=== PATIENT | female | born 1930 | race Caucasian/White ===

== ENCOUNTER 2017-01-23 11:31 | Emergency (ER) | payer MEDICARE, BC ==
[2017-01-23] MEDS ORDERED: SODIUM CHLORIDE 0.9% 500 ML IV STA (11:51)
[2017-01-23] MEDS ORDERED: SODIUM CHLORIDE 0.9% 1,000 ML IV STA (11:51)
[2017-01-23] MEDS ORDERED: HYDROmorphone 1 MG/ML 1 ML SYRINGE IVP STA (11:51)
--- NOTE | 2017-01-23 12:40 | ED ---
General Adult HPI - General Chief complaint: Back Pain/Injury Stated complaint: back pain, kidney infection Time Seen by Provider: 01/23/17 11:44 Source: family, RN notes reviewed, old records reviewed Mode of arrival: ambulatory Limitations: altered mental status - History of Present Illness Initial comments: This is an 86-year-old female the ER for evaluation. Possible urinary tract infection. Patient has dementia so unable to give history patient with family at bedside, sent from urgent care clinic care facility for evaluation regarding bloody urine possible urinary tract infection, possible kidney infection, possible kidney stone. No fevers, patient herself has no complaints - Related Data Home Medications Medication Instructions Recorded Confirmed Acetaminophen Tab [Tylenol Tab] 500 mg PO Q6H PRN 02/07/16 01/23/17 Cholecalciferol [Vitamin D3] 1,000 unit PO DAILY 02/07/16 01/23/17 Multivitamins, Thera [Multivitamin] 1 tab PO DAILY 02/07/16 01/23/17 Escitalopram [Lexapro] 10 mg PO DAILY 02/25/16 01/23/17 Lactulose 20 gm PO DAILY 01/23/17 01/23/17 QUEtiapine [SEROquel] 25 mg PO QAM 01/23/17 01/23/17 QUEtiapine [SEROquel] 50 mg PO HS 01/23/17 01/23/17 Allergies Allergy/AdvReac Type Severity Reaction Status Date / Time codeine Allergy Unknown Verified 01/23/17 11:56 diphenhydramine HCl Allergy Unknown Verified 01/23/17 11:56 [From Benadryl] hydroxyzine [From Vistaril] Allergy Unknown Verified 01/23/17 11:56 levofloxacin [From Levaquin] Allergy Unknown Verified 01/23/17 11:56 meperidine HCl [From Demerol] Allergy Unknown Verified 01/23/17 11:56 morphine Allergy Unknown Verified 01/23/17 11:56 STEROIDS Allergy Unknown Uncoded 01/23/17 11:56 Review of Systems ROS Statement: Those systems with pertinent positive or pertinent negative responses have been documented in the HPI. ROS Other: All systems not noted in ROS Statement are negative. 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 Absent: scleral icterus, conjunctival injection, periorbital swelling ENT exam: Present: normal exam, mucous membranes moist Neck exam: Present: normal inspection. Absent: tenderness, meningismus, lymphadenopathy Respiratory exam: Present: normal lung sounds bilaterally. Absent: respiratory distress, wheezes, rales, rhonchi, stridor Cardiovascular Exam: Present: regular rate, normal rhythm, normal heart sounds. Absent: systolic murmur, diastolic murmur, rubs, gallop, clicks GI/Abdominal exam: Present: soft, normal bowel sounds. Absent: distended, tenderness, guarding, rebound, rigid Extremities exam: Present: normal inspection, full ROM, normal capillary refill. Absent: tenderness, pedal edema, joint swelling, calf tenderness Back exam: Present: normal inspection Neurological exam: Present: alert, oriented X3, CN II-XII intact Psychiatric exam: Present: normal affect, normal mood Skin exam: Present: warm, dry, intact, normal color. Absent: rash Course Vital Signs 01/23/17 11:35 Temperature 97.8 F Pulse Rate 74 Respiratory 20 Rate Blood Pressure 151/71 O2 Sat by Pulse 98 Oximetry - Reevaluation(s) Reevaluation #1: 01/23/17 13:30 But with family regarding patient's condition, they are aware, updated Medical Decision Making - Medical Decision Making 86 female ER for evaluation regarding possible urinary tract infection, positive urinary tract infection CT level is normal, patient to be discharged home - Lab Data Result diagrams: 01/23/17 12:25 01/23/17 12:25 Lab Results 01/23/17 01/23/17 01/23/17 Range/Units 12:25 12:25 12:25 WBC 9.4 (3.8-10.6) k/uL RBC 3.91 (3.80-5.40) m/uL Hgb 11.9 (11.4-16.0) gm/dL Hct 35.7 (34.0-46.0) % MCV 91.3 (80.0-100.0) fL MCH 30.5 (25.0-35.0) pg MCHC 33.4 (31.0-37.0) g/dL RDW 12.7 (11.5-15.5) % Plt Count 278 (150-450) k/uL Neutrophils % 79 % Lymphocytes % 11 % Monocytes % 6 % Eosinophils % 1 % Basophils % 0 % Neutrophils # 7.4 (1.3-7.7) k/uL Lymphocytes # 1.0 (1.0-4.8) k/uL Monocytes # 0.6 (0-1.0) k/uL Eosinophils # 0.1 (0-0.7) k/uL Basophils # 0.0 (0-0.2) k/uL PT (9.0-12.0) sec INR (<1.1) APTT (22.0-30.0) sec Sodium 142 (137-145) mmol/L Potassium 4.1 (3.5-5.1) mmol/L Chloride 107 (98-107) mmol/L Carbon Dioxide 26 (22-30) mmol/L Anion Gap 9 mmol/L BUN 20 H (7-17) mg/dL Creatinine 0.71 (0.52-1.04) mg/dL Est GFR (MDRD) Af Amer >60 (>60 ml/min/1.73 sqM) Est GFR (MDRD) Non-Af >60 (>60 ml/min/1.73 sqM) Glucose 85 (74-99) mg/dL Calcium 9.2 (8.4-10.2) mg/dL Phosphorus 4.0 (2.5-4.5) mg/dL Magnesium 2.2 (1.6-2.3) mg/dL Total Bilirubin 0.6 (0.2-1.3) mg/dL AST 17 (14-36) U/L ALT 20 (9-52) U/L Alkaline Phosphatase 84 (38-126) U/L Total Creatine Kinase 69 (30-135) U/L CK-MB (CK-2) 0.8 (0.0-2.4) ng/mL CK-MB (CK-2) Rel Index 1.2 Troponin I <0.012 (0.000-0.034) ng/mL Total Protein 6.4 (6.3-8.2) g/dL Albumin 3.6 (3.5-5.0) g/dL Urine Color Urine Appearance (Clear) Urine pH (5.0-8.0) Ur Specific [place] (1.001-1.035) Urine Protein (Negative) Urine Glucose (UA) (Negative) Urine Ketones (Negative) Urine Blood (Negative) Urine Nitrite (Negative) Urine Bilirubin (Negative) Urine Urobilinogen (<2.0) mg/dL Ur Leukocyte Esterase (Negative) Urine RBC (0-5) /hpf Urine WBC (0-5) /hpf Ur Squamous Epith Cells (0-4) /hpf Amorphous Sediment (None) /hpf Urine Bacteria (None) /hpf Urine Mucus (None) /hpf 01/23/17 01/23/17 Range/Units 12:25 12:25 WBC (3.8-10.6) k/uL RBC (3.80-5.40) m/uL Hgb (11.4-16.0) gm/dL Hct (34.0-46.0) % MCV (80.0-100.0) fL MCH (25.0-35.0) pg MCHC (31.0-37.0) g/dL RDW (11.5-15.5) % Plt Count (150-450) k/uL Neutrophils % % Lymphocytes % % Monocytes % % Eosinophils % % Basophils % % Neutrophils # (1.3-7.7) k/uL Lymphocytes # (1.0-4.8) k/uL Monocytes # (0-1.0) k/uL Eosinophils # (0-0.7) k/uL Basophils # (0-0.2) k/uL PT 10.4 (9.0-12.0) sec INR 1.0 (<1.1) APTT 24.5 (22.0-30.0) sec Sodium (137-145) mmol/L Potassium (3.5-5.1) mmol/L Chloride (98-107) mmol/L Carbon Dioxide (22-30) mmol/L Anion Gap mmol/L BUN (7-17) mg/dL Creatinine (0.52-1.04) mg/dL Est GFR (MDRD) Af Amer (>60 ml/min/1.73 sqM) Est GFR (MDRD) Non-Af (>60 ml/min/1.73 sqM) Glucose (74-99) mg/dL Calcium (8.4-10.2) mg/dL Phosphorus (2.5-4.5) mg/dL Magnesium (1.6-2.3) mg/dL Total Bilirubin (0.2-1.3) mg/dL AST (14-36) U/L ALT (9-52) U/L Alkaline Phosphatase (38-126) U/L Total Creatine Kinase (30-135) U/L CK-MB (CK-2) (0.0-2.4) ng/mL CK-MB (CK-2) Rel Index Troponin I (0.000-0.034) ng/mL Total Protein (6.3-8.2) g/dL Albumin (3.5-5.0) g/dL Urine Color Yellow Urine Appearance Cloudy H (Clear) Urine pH 7.5 (5.0-8.0) Ur Specific [place] 1.018 (1.001-1.035) Urine Protein Trace H (Negative) Urine Glucose (UA) Negative (Negative) Urine Ketones Negative (Negative) Urine Blood Trace H (Negative) Urine Nitrite Negative (Negative) Urine Bilirubin Negative (Negative) Urine Urobilinogen <2.0 (<2.0) mg/dL Ur Leukocyte Esterase Large H (Negative) Urine RBC 36 H (0-5) /hpf Urine WBC 9 H (0-5) /hpf Ur Squamous Epith Cells 1 (0-4) /hpf Amorphous Sediment Few H (None) /hpf Urine Bacteria Rare H (None) /hpf Urine Mucus Rare H (None) /hpf - Radiology Data Radiology results: report reviewed (CT abd and pelvis negative for acute disease ), image reviewed Disposition Clinical Impression: UTI (urinary tract infection) Disposition: HOME SELF-CARE Condition: Good Instructions: Urinary Tract Infection in Women (ED) Referrals: Jose Barrera MD [Primary Care Provider] - 1-2 days
[2017-01-23 12:47] LABS: Amorphous Sediment,Urine Few /hpf; Appearance,Urine Cloudy (Clear); Bacteria,Urine Rare /hpf; Bilirubin,Urine Negative (Negative); Glucose,Urine (UA) Negative (Negative); Ketones,Urine Negative (Negative); Leukocyte Esterase,Urine Large (Negative); Mucus,Urine Rare /hpf; Nitrite,Urine Negative (Negative); PH, Urine 7.5 (5.0-8.0); Particle Count 43280; Protein,Urine Trace (Negative); RBC,Urine 36 /hpf (0-5); Specific Gravity,Urine 1.018 (1.001-1.035); Squamous Epithelial Cell,Urine 1 /hpf (0-4); UA Billing (MACRO vs. MICRO) MICRO; Urobilinogen,Urine <2.0 mg/dL (<2.0); WBC,Urine 9 /hpf (0-5)
[2017-01-23 12:55] LABS: ALT 20 U/L (9-52); AST 17 U/L (14-36); Alkaline Phosphatase 84 U/L (38-126); Anion Gap 9 mmol/L; Blood Urea Nitrogen 20 mg/dL (7-17); Calcium 9.2 mg/dL (8.4-10.2); Carbon Dioxide 26 mmol/L (22-30); Chloride 107 mmol/L (98-107); Glucose 85 mg/dL (74-99); Magnesium 2.2 mg/dL (1.6-2.3); Non-African American GFR(MDRD) >60 (>60 ml/min/1.73 sqM); Potassium 4.1 mmol/L (3.5-5.1); Sodium 142 mmol/L (137-145); Total Bilirubin 0.6 mg/dL (0.2-1.3); Total Protein 6.4 g/dL (6.3-8.2)
[2017-01-23 12:56] LABS: Basophils % (A) 0 %; CH 29.3; CHCM 32.2; Eosinophils # (A) 0.1 k/uL (0-0.7); Eosinophils % (A) 1 %; HCT 35.7 % (34.0-46.0); HDW 2.18; HGB 11.9 gm/dL (11.4-16.0); Luc # (Auto) 0.21; Luc % (Auto) 2; Lymphocytes % (A) 11 %; MCH 30.5 pg (25.0-35.0); MCHC 33.4 g/dL (31.0-37.0); MCV 91.3 fL (80.0-100.0); Mean Platelet Volume 6.4; Monocytes # (A) 0.6 k/uL (0-1.0); Monocytes % (A) 6 %; Neutrophils # (A) 7.4 k/uL (1.3-7.7); Neutrophils % (A) 79 %; RBC 3.91 m/uL (3.80-5.40); RDW 12.7 % (11.5-15.5); WBC 9.4 k/uL (3.8-10.6); WBC (Perox) 9.66
[2017-01-23 13:02] LABS: Creatine Kinase 69 U/L (30-135)
[2017-01-23 13:04] LABS: Partial Thromboplastin Time 24.5 sec (22.0-30.0); Prothrombin Time 10.4 sec (9.0-12.0)
[2017-01-23 13:14] LABS: Creatine Kinase MB 0.8 ng/mL (0.0-2.4); Troponin I <0.012 ng/mL (0.000-0.034)
--- NOTE | 2017-01-23 13:14 | CT ---
EXAMINATION TYPE: CT abdomen pelvis wo con DATE OF EXAM: 01/23/2017 COMPARISON: July 31, 2013 HISTORY: Patient complains of left flank pain. CT DLP: 335.2 mGycm Examination of the solid and hollow viscera is limited given the lack of contrast. FINDINGS: LUNG BASES: No evidence for nodule. No evidence for infiltrate. LIVER/GB: The gallbladder is unremarkable. No space-occupying hepatic lesion. PANCREAS: No pancreatic mass identified. No inflammatory process seen. SPLEEN: No evidence for splenomegaly. No intrasplenic lesions seen. ADRENALS: No adrenal nodules identified. No evidence for thickening. KIDNEYS: Nonspecific complex lesion left kidney measures 4.0 x 3.1 cm and appears stable relative to the prior examination. No nephrolithiasis. No hydronephrosis. BOWEL: Appendix has a normal appearance. No evidence of bowel obstruction. No inflammatory process. M oderate fecal stasis. Lymph nodes: No evidence for adenopathy greater than 1 cm. Abdominal aorta: There is infrarenal abdominal aortic aneurysm measuring 4.6 cm AP dimension which marrero s progressed from approximately 3.2 cm previously. There is mural thrombus as well as what appears to reflect displaced calcification. 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 Other: Degenerative changes lumbar spine. Postoperative changes noted as well. IMPRESSION: 1. 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 MURAL THROMBUS IDENTIFIED. 2. COMPLEX LEFT RENAL LESION IS STABLE. 3. MODERATE FECAL STASIS.
[2017-01-23] MEDS ORDERED: NITROFURANTOIN MONOHYD/M-CRYST 100 MG CAP PO STA (13:31)
[2017-01-23 13:41] VITALS: BP 137/65; PULSE 61; RESP 18; TEMP 98
== END 2017-01-23 13:50 | disposition home or self-care (01) ==
LOC: EC 11:31
DX: N39.0 Urinary tract infection, site not specified (principal); Z85.9 Personal history of malignant neoplasm, unspecified; Z87.891 Personal history of nicotine dependence; Z79.899 Other long term (current) drug therapy; Z96.659 Presence of unspecified artificial knee joint; Z88.1 Allergy status to other antibiotic agents; Z88.5 Allergy status to narcotic agent; Z88.8 Allergy status to other drugs, medicaments and biological substances; Z53.20 Procedure and treatment not carried out because of patient's decision for unspecified reasons
CPT/HCPCS: 36415; 74176; 80053; 81001; 82550; 82553; 83735; 84100; 84484; 85025; 85610; 85730; 87086; 96360; 99284

== ENCOUNTER 2017-06-19 16:08 | Emergency (ER) | payer MEDICARE, BC ==
[2017-06-19 16:19] VITALS: RESP 18; TEMP 99.4
[2017-06-19 17:40] LABS: Basophils # (A) 0.1 k/uL (0-0.2); Basophils % (A) 1 %; CH 28.7; CHCM 31.5; Eosinophils # (A) 0.2 k/uL (0-0.7); Eosinophils % (A) 3 %; HCT 33.7 % (34.0-46.0); HDW 2.04; HGB 10.6 gm/dL (11.4-16.0); Luc # (Auto) 0.12; Luc % (Auto) 2; Lymphocytes # (A) 1.2 k/uL (1.0-4.8); Lymphocytes % (A) 20 %; MCH 28.7 pg (25.0-35.0); MCHC 31.3 g/dL (31.0-37.0); MCV 91.6 fL (80.0-100.0); Mean Platelet Volume 7.1; Monocytes # (A) 0.5 k/uL (0-1.0); Monocytes % (A) 9 %; Neutrophils % (A) 66 %; RBC 3.68 m/uL (3.80-5.40); RDW 14.4 % (11.5-15.5); WBC 6.1 k/uL (3.8-10.6); WBC (Perox) 6.44
--- NOTE | 2017-06-19 17:46 | XR ---
EXAMINATION TYPE: XR abdomen 2V DATE OF EXAM: 06/19/2017 COMPARISON: NONE HISTORY: Constipation TECHNIQUE: 2 views FINDINGS: There is retained fecal material throughout the colon. There is no sign of free air. Lung b ases are clear. I see no pathologic calcifications over the kidneys. There are spondylotic changes in the lumbar spine. IMPRESSION: Constipation. Nonacute abdomen.
[2017-06-19 17:50] LABS: ALT 28 U/L (9-52); AST 18 U/L (14-36); Alkaline Phosphatase 77 U/L (38-126); Amylase 51 U/L (30-110); Anion Gap 7 mmol/L; Blood Urea Nitrogen 24 mg/dL (7-17); Carbon Dioxide 25 mmol/L (22-30); Chloride 106 mmol/L (98-107); Glucose 99 mg/dL (74-99); Non-African American GFR(MDRD) 60 (>60 ml/min/1.73 sqM); Sodium 138 mmol/L (137-145); Total Bilirubin 0.2 mg/dL (0.2-1.3); Total Protein 5.7 g/dL (6.3-8.2)
--- NOTE | 2017-06-19 18:36 | ED ---
General Adult HPI - General Chief complaint: Abdominal Pain Stated complaint: Abd Pain-constipated Time Seen by Provider: 06/19/17 17:11 Source: patient, family, RN notes reviewed, old records reviewed Mode of arrival: wheelchair Limitations: altered mental status - History of Present Illness Initial comments: chief complaint history of present illness 89-year-old female here with family. The patient has a history of constipation problems. The reports she's had difficulty for the past several weeks. - Related Data Home Medications Medication Instructions Recorded Confirmed Acetaminophen Tab [Tylenol Tab] 500 mg PO Q6H PRN 02/07/16 06/19/17 Cholecalciferol [Vitamin D3] 1,000 unit PO DAILY 02/07/16 06/19/17 Multivitamins, Thera [Multivitamin] 1 tab PO DAILY 02/07/16 06/19/17 Escitalopram [Lexapro] 10 mg PO DAILY 02/25/16 06/19/17 Lactulose 20 gm PO Q48H 01/23/17 06/19/17 QUEtiapine [SEROquel] 25 mg PO QAM 01/23/17 06/19/17 QUEtiapine [SEROquel] 50 mg PO HS 01/23/17 06/19/17 LORazepam [Ativan] 0.5 mg PO BID PRN 06/19/17 06/19/17 Allergies Allergy/AdvReac Type Severity Reaction Status Date / Time codeine Allergy Rash/Hives Verified 06/19/17 16:40 diphenhydramine HCl Allergy Unknown Verified 06/19/17 16:40 [From Benadryl] hydroxyzine [From Vistaril] Allergy Unknown Verified 06/19/17 16:40 levofloxacin [From Levaquin] Allergy Unknown Verified 06/19/17 16:40 meperidine HCl [From Demerol] Allergy Unknown Verified 06/19/17 16:40 morphine Allergy Unknown Verified 06/19/17 16:40 STEROIDS Allergy Unknown Uncoded 01/23/17 11:56 Review of Systems ROS Statement: Those systems with pertinent positive or pertinent negative responses have been documented in the HPI. review of systems at this time, the patient is not complaining of any pain. Denies any pain with headache no chest pain shortness breath GI/ problems. 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 The patient's surgeries include back surgery partial hysterectomy, total left knee placement. Family history noncontributory patient is a former smoker denies alcohol use this time. She has ALLERGIES to codeine and diphenhydramine hydroxyzine level floxacillin meperidine morphine and steroids. ROS Other: All systems not noted in ROS Statement are negative. Past Medical History Past Medical History: Cancer, Dementia, Hypertension Additional Past Medical History / Comment(s): lymphadenoma, lymphoma History of Any Multi-Drug Resistant Organisms: None Reported Past Surgical History: Back Surgery, Hysterectomy, Joint Replacement Additional Past Surgical History / Comment(s): knee replacement Past Psychological History: No Psychological Hx Reported Smoking Status: Former smoker Past Alcohol Use History: None Reported Past Drug Use History: None Reported General Exam - General Exam Comments Initial Comments: General: The patient is awake and alert, in no distress, and does not appear acutely ill. patient has dementia. She is here for constipation for a prolonged period of time. Vital signs temperature 99.4 pulse 89 respiratory rate 18 pulse ox 90 % room air blood pressure 135/78 Eye: Pupils are equal, round , extra-ocular movements are intact; there is normal conjunctiva bilaterally. No signs of icterus. Ears, nose, mouth and throat: There are moist mucous membranes Neck: The neck is supple, there is no tenderness Cardiovascular: There is a regular rate and rhythm. No murmur, rub or gallop is appreciated. Respiratory: Lungs are clear to auscultation, respirations are non-labored, breath sounds are equal. No wheezes, stridor, rales, or rhonchi. Gastrointestinal: Soft, non-distended, non-tender abdomen without masses or organomegaly noted. There is no rebound or guarding present. No CVA tenderness. Bowel sounds are unremarkable.to examination done with the assistance of registered nurse Liya. Finds patient to be impacted. Partial disimpaction was attempted. Patient will have an enema. Back: when the patient was rotated there is no evidence of any back injury or rash. Musculoskeletal: Normal ROM, no tenderness, There is no pedal edema. There is no calf tenderness or swelling. Sensation intact. Neurological: no apparent neuro deficits. Skin: Skin is warm and dry and no rashes or lesions are noted. Psychiatric: dementia Limitations: altered mental status Course Vital Signs 06/19/17 06/19/17 16:16 20:41 Temperature 99.4 F Pulse Rate 89 66 Respiratory 18 18 Rate Blood Pressure 135/78 138/63 O2 Sat by Pulse 98 93 L Oximetry Medical Decision Making - Medical Decision Making Medical decision-making. The patient is here because of impaction and constipation for several weeks. extremity of the abdomen was done and reviewed by radiologist and his impression is constipation, nonacute abdomen. As read by Dr. Adrian Labs show white count 6.1 hemoglobin 10 hematocrit 33 with a potassium 4.0. BUN 24 creatinine 0.9 and GFR greater than 60. Amylase lipase within normal limits.Rectal examination was done with the assistance of nurse Liya. I disimpacted a large amount of stool from the impacted area. The patient tolerated the procedure well. She will have an enema and placed on portable toilet was disimpacted twice by me and once by the nurse. She did eventually have a very large amount of stool. Family is rated take her home. - Lab Data Result diagrams: 06/19/17 17:29 06/19/17 17:29 Lab Results 06/19/17 06/19/17 Range/Units 17:29 17:29 WBC 6.1 (3.8-10.6) k/uL RBC 3.68 L (3.80-5.40) m/uL Hgb 10.6 L (11.4-16.0) gm/dL Hct 33.7 L (34.0-46.0) % MCV 91.6 (80.0-100.0) fL MCH 28.7 (25.0-35.0) pg MCHC 31.3 (31.0-37.0) g/dL RDW 14.4 (11.5-15.5) % Plt Count 275 (150-450) k/uL Neutrophils % 66 % Lymphocytes % 20 % Monocytes % 9 % Eosinophils % 3 % Basophils % 1 % Neutrophils # 4.0 (1.3-7.7) k/uL Lymphocytes # 1.2 (1.0-4.8) k/uL Monocytes # 0.5 (0-1.0) k/uL Eosinophils # 0.2 (0-0.7) k/uL Basophils # 0.1 (0-0.2) k/uL Sodium 138 (137-145) mmol/L Potassium 4.0 (3.5-5.1) mmol/L Chloride 106 (98-107) mmol/L Carbon Dioxide 25 (22-30) mmol/L Anion Gap 7 mmol/L BUN 24 H (7-17) mg/dL Creatinine 0.90 (0.52-1.04) mg/dL Est GFR (MDRD) Af Amer >60 (>60 ml/min/1.73 sqM) Est GFR (MDRD) Non-Af 60 (>60 ml/min/1.73 sqM) Glucose 99 (74-99) mg/dL Calcium 9.0 (8.4-10.2) mg/dL Total Bilirubin 0.2 (0.2-1.3) mg/dL AST 18 (14-36) U/L ALT 28 (9-52) U/L Alkaline Phosphatase 77 (38-126) U/L Total Protein 5.7 L (6.3-8.2) g/dL Albumin 3.2 L (3.5-5.0) g/dL Amylase 51 (30-110) U/L Lipase 101 (23-300) U/L Disposition Clinical Impression: Constipation by delayed colonic transit Disposition: HOME SELF-CARE Condition: Fair Instructions: Constipation (ED), High Fiber Diet (ED), Fleet Enema (ED) Additional Instructions: Please fluids, stay regular increase bulky diet. Use laxatives as needed follow -up family physician Referrals: Jose Barrera MD [Primary Care Provider] - 1-2 days Time of Disposition: 21:03
[2017-06-19 20:42] VITALS: BP 138/63; PULSE 66
== END 2017-06-19 21:15 | disposition home or self-care (01) ==
LOC: EC 16:08
DX: K59.01 Slow transit constipation (principal); F03.90 Unspecified dementia, unspecified severity, without behavioral disturbance, psychotic disturbance, mood disturbance, and anxiety; I10 Essential (primary) hypertension; Z85.72 Personal history of non-Hodgkin lymphomas; Z87.891 Personal history of nicotine dependence; Z79.899 Other long term (current) drug therapy; Z88.1 Allergy status to other antibiotic agents; Z88.6 Allergy status to analgesic agent; Z88.8 Allergy status to other drugs, medicaments and biological substances
CPT/HCPCS: 36415; 74020; 80053; 82150; 83690; 85025; 99284

== ENCOUNTER 2019-08-09 17:13 | Emergency (ER) | payer MEDICARE, BC ==
[2019-08-09 17:20] VITALS: TEMP 97.6
--- NOTE | 2019-08-09 17:36 | ED ---
General Adult HPI - General Chief complaint: Fall Stated complaint: fall, head injury Time Seen by Provider: 08/09/19 17:16 Source: family Mode of arrival: wheelchair Limitations: altered mental status - History of Present Illness Initial comments: Dictation was produced using [employer] dictation software. please excuse any grammatical, word or spelling errors. Chief Complaint: 88-year-old female past medical history dementia and hypertension presents after fall. History of Present Illness: 88-year-old female she has extensive history of frequent falls. Patient lives at a hospice facility where she was walking. She tripped and struck her head. Patient is a poor historian this time secondary to her baseline mental status. Patient unable to provide history. She has HER-2 daughters here at bedside by report that patient has a history of tripping and falling striking her head. They brought her to the emergency department because she had a hematoma on the back of her left occiput. She is otherwise been behaving normally. Allegedly incident did happen approximately one-two hours prior to arrival. She is not taking any anticoagulation medications. The ROS documented in this emergency department record has been reviewed and confirmed by me. Those systems with pertinent positive or negative responses have been documented in the HPI. All other systems are other negative and/or noncontributory. PHYSICAL EXAM: General Impression: Alert and oriented x2/4, not in acute distress HEENT: 2 x 2 centimeter hematoma over the left superior occiput, extra-ocular movements intact, pupils equal and reactive to light bilaterally, mucous membranes moist. Cardiovascular: Heart regular rate and rhythm, S1&S2 audible, no murmurs, rubs or gallops Chest: Lungs clear to auscultation bilaterally, no rhonchi, no wheeze, no rales Abdomen: Bowel sounds present, abdomen soft, non-tender, non-distended, no organomegaly Musculoskeletal: Pulses present and equal in all extremities, no peripheral edema, no tenderness to palpation of the chest, no tenderness to palpation of the pelvis, all joints ranged with no pain Motor: no focal deficits noted Neurological: CN II-XII grossly intact, no focal motor or sensory deficits noted Skin: Intact with no visualized rashes Psych: Normal affect and mood ED course: 88-year-old female presents after mechanical fall. She struck her head. Extremities on physical examination is benign. No other findings to suggest severe traumatic injury. As upon arrival are within acceptable limits. Patient's well-appearing at bedside and in no acute distress. Family reports the patient is mentally at baseline. Family gives a clear history of mechanical fall.Recommended computed tomography scan and blood work to evaluate for traumatic injury. Family was refusing any sort of workup including radiographic and lab studies.. They state they've brought patient to the emergency department as a formality for qualification of hospice care. They understand the risk of not being worked up given that her age and she does have findings of external head trauma. Understand that patient may have a significant traumatic brain injury that could be only seen on radiographic imaging and if diagnoses delayed she could experience significant morbidity or even mortality. Family reports she is on hospice. Patient observed in emergency department to 620p. Fall occurred at approximately 4:20 PM. Patient's is well-appearing. Patient will be discharged. They're given strict return precautions. They're told to bring patient back to emergency department if she begins experiencing headache, focal neurologic deficit or altered mental status. Patient will be dispositioned under the care of her family. They're told to observe her especially for the next 48 hours to if she develops any sort of changes in medical condition. They're otherwise advised follow-up with primary care physician upon discharge. - Related Data Home Medications Medication Instructions Recorded Confirmed Acetaminophen Tab [Tylenol Tab] 500 mg PO Q6H PRN 02/07/16 06/19/17 Cholecalciferol [Vitamin D3] 1,000 unit PO DAILY 02/07/16 06/19/17 Multivitamins, Thera [Multivitamin] 1 tab PO DAILY 02/07/16 06/19/17 Escitalopram [Lexapro] 10 mg PO DAILY 02/25/16 06/19/17 Lactulose 20 gm PO Q48H 01/23/17 06/19/17 QUEtiapine [SEROquel] 25 mg PO QAM 01/23/17 06/19/17 QUEtiapine [SEROquel] 50 mg PO HS 01/23/17 06/19/17 LORazepam [Ativan] 0.5 mg PO BID PRN 06/19/17 06/19/17 Allergies Allergy/AdvReac Type Severity Reaction Status Date / Time codeine Allergy Rash/Hives Verified 08/09/19 17:20 diphenhydramine HCl Allergy Unknown Verified 08/09/19 17:20 [From Benadryl] hydroxyzine [From Vistaril] Allergy Unknown Verified 08/09/19 17:20 levofloxacin [From Levaquin] Allergy Unknown Verified 08/09/19 17:20 meperidine HCl [From Demerol] Allergy Unknown Verified 08/09/19 17:20 morphine Allergy Unknown Verified 08/09/19 17:20 STEROIDS Allergy Unknown Uncoded 08/09/19 17:20 Review of Systems ROS Statement: Those systems with pertinent positive or pertinent negative responses have been documented in the HPI. ROS Other: All systems not noted in ROS Statement are negative. Past Medical History Past Medical History: Cancer, Dementia, Hypertension Additional Past Medical History / Comment(s): lymphadenoma, lymphoma History of Any Multi-Drug Resistant Organisms: None Reported Past Surgical History: Back Surgery, Hysterectomy, Joint Replacement Additional Past Surgical History / Comment(s): knee replacement Past Psychological History: No Psychological Hx Reported Smoking Status: Former smoker Past Alcohol Use History: None Reported Past Drug Use History: None Reported General Exam Limitations: altered mental status Course Vital Signs 08/09/19 17:14 Temperature 97.6 F Pulse Rate 73 Respiratory 20 Rate Blood Pressure 104/76 O2 Sat by Pulse 99 Oximetry Disposition Clinical Impression: Head trauma Disposition: HOME SELF-CARE Condition: Fair Instructions (If sedation given, give patient instructions): Fall Prevention for Older Adults (ED) Is patient prescribed a controlled substance at d/c from ED?: No Referrals: Jose Barrera MD [Primary Care Provider] - 1-2 days Time of Disposition: 18:04
[2019-08-09 18:43] VITALS: BP 144/87; PULSE 84; RESP 18
== END 2019-08-09 18:44 | disposition home or self-care (01) ==
LOC: EC 17:13
DX: S09.90XA Unspecified injury of head, initial encounter (principal); I10 Essential (primary) hypertension; Z79.899 Other long term (current) drug therapy; Z88.5 Allergy status to narcotic agent; Z88.1 Allergy status to other antibiotic agents; Z88.8 Allergy status to other drugs, medicaments and biological substances; Z87.891 Personal history of nicotine dependence; Z96.659 Presence of unspecified artificial knee joint; W01.198A Fall on same level from slipping, tripping and stumbling with subsequent striking against other object, initial encounter; F03.90 Unspecified dementia, unspecified severity, without behavioral disturbance, psychotic disturbance, mood disturbance, and anxiety
CPT/HCPCS: 99283

== ENCOUNTER 2019-12-25 11:41 | Emergency (ER) | payer OTHER, BC ==
[2019-12-25 11:52] VITALS: RESP 18
[2019-12-25 13:22] VITALS: TEMP 97.2
--- NOTE | 2019-12-25 13:25 | ED ---
General Adult HPI - General Chief complaint: Fall Stated complaint: fall, head injury Time Seen by Provider: 12/25/19 11:59 Source: patient, RN notes reviewed, old records reviewed Mode of arrival: wheelchair Limitations: no limitations - History of Present Illness Initial comments: 89-year-old female patient presents to ED for chief complaint of fall patient was reportedly at assisted living facility when she stood up and slipped and fell between her chair and it table hit her head and that several laceration to the back of her skull. No loss of consciousness was witnessed. Patient acting at baseline per daughters who are medical decision makers. Walking and using all extremities. Patient does have history of dementia and further history taking is limited due to this. - Related Data Home Medications Medication Instructions Recorded Confirmed Acetaminophen Tab [Tylenol Tab] 500 mg PO Q6H PRN 02/07/16 06/19/17 Cholecalciferol [Vitamin D3] 1,000 unit PO DAILY 02/07/16 06/19/17 Multivitamins, Thera [Multivitamin] 1 tab PO DAILY 02/07/16 06/19/17 Escitalopram [Lexapro] 10 mg PO DAILY 02/25/16 06/19/17 Lactulose 20 gm PO Q48H 01/23/17 06/19/17 QUEtiapine [SEROquel] 25 mg PO QAM 01/23/17 06/19/17 QUEtiapine [SEROquel] 50 mg PO HS 01/23/17 06/19/17 LORazepam [Ativan] 0.5 mg PO BID PRN 06/19/17 06/19/17 Allergies Allergy/AdvReac Type Severity Reaction Status Date / Time codeine Allergy Rash/Hives Verified 12/25/19 11:52 diphenhydramine HCl Allergy Unknown Verified 12/25/19 11:52 [From Benadryl] hydroxyzine [From Vistaril] Allergy Unknown Verified 12/25/19 11:52 levofloxacin [From Levaquin] Allergy Unknown Verified 12/25/19 11:52 meperidine HCl [From Demerol] Allergy Unknown Verified 12/25/19 11:52 morphine Allergy Unknown Verified 12/25/19 11:52 STEROIDS Allergy Unknown Uncoded 12/25/19 11:52 Review of Systems ROS Statement: Those systems with pertinent positive or pertinent negative responses have been documented in the HPI. ROS Other: All systems not noted in ROS Statement are negative. 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 HEENT: NC/AT, trachea midline, neck supple, no lymphadenopathy. External ears appear normal, without discharge. Mucous membranes moist. Eyes PERRLA, EOM intact. There is no scleral icterus. No pallor noted. Cardiopulmonary: RRR, no murmurs, rubs or gallops, no JVD noted. Lungs CTAB in anterior and posterior arredondo. No peripheral edema. Abdominal exam: Abdomen soft and non-distended. Abdomen non-tender to palpation in all 4 quadrants. Bowel sounds active in LLQ. No hepatosplenomegaly. No ecchymosis Neuro: CN II-XII grossly intact. No nuchal rigidity. No raccon eyes, no solomon sign, No cervical spinal tenderness. MSK: Full active ROM in upper and lower extremities, 5/5 stregnth. 2 cm laceration posterior skull region, irrigated approximated 2 joaquina. Upper and lower extremities are palpated there is no areas of tenderness or signs of trauma noted. Limitations: no limitations Course Vital Signs 12/25/19 12/25/19 11:49 13:21 Temperature 97.2 F L Pulse Rate 89 Respiratory 18 Rate Blood Pressure 147/104 O2 Sat by Pulse 96 Oximetry Procedures - Laceration Laceration #1 Consent Obtained: verbal consent Indication: laceration Site: scalp Size (cm): 2 Description: linear Depth: simple, single layer Pre-repair: wound explored, irrigated extensively, deep structures intact Type of Sutures: other (staple) Size of Sutures: other Number of Sutures: 2 Patient Tolerated Procedure: well, no complications Medical Decision Making - Medical Decision Making 89-year-old female patient presents to ED with chief complaint of fall. Patient apparently fell back and hit the back of her head. Patient reported suffered a laceration to the back of her skull. No loss consciousness witnessed. No use of blood thinners. Patient vital signs are stable. Physical exam displayed 2 cm laceration which was cleaned and approximated 2 joaquina. Daughters who are medical decision makers are declining all imaging. Advanced imaging was recommended. Explaied that I am not ruling out any sort of bleed within the brain or fracture the neck and this could be fatal, they verbalized understanding. Patient will be discharged and will follow up with primary care provider tomorrow. Tetanus is up-to-date. Case discussed with Dr. Duong. Disposition Clinical Impression: Fall, Laceration Disposition: HOME SELF-CARE Condition: Stable Instructions (If sedation given, give patient instructions): Fall Prevention (ED), Laceration (ED) Additional Instructions: Please return for suture removal: Scalp: 7 days Please monitor for signs and symptoms of infection including: redness, warmth, drainage, discharge. Please return to ED if these signs or symptoms occur, new signs or symptoms develop or if condition worsens in anyway. Follow-up with primary care provider tomorrow. Is patient prescribed a controlled substance at d/c from ED?: No Referrals: Jose Barrera MD [Primary Care Provider] - 1-2 days
[2019-12-25 13:40] VITALS: BP 141/94; PULSE 70
== END 2019-12-25 13:41 | disposition home or self-care (01) ==
LOC: EC 11:41
DX: S01.81XA Laceration without foreign body of other part of head, initial encounter (principal); I10 Essential (primary) hypertension; F03.90 Unspecified dementia, unspecified severity, without behavioral disturbance, psychotic disturbance, mood disturbance, and anxiety; Z79.899 Other long term (current) drug therapy; Z88.1 Allergy status to other antibiotic agents; Z88.5 Allergy status to narcotic agent; Z88.8 Allergy status to other drugs, medicaments and biological substances; Z85.72 Personal history of non-Hodgkin lymphomas; Z87.891 Personal history of nicotine dependence; Z90.710 Acquired absence of both cervix and uterus; Z96.659 Presence of unspecified artificial knee joint; W01.190A Fall on same level from slipping, tripping and stumbling with subsequent striking against furniture, initial encounter; Y92.099 Unspecified place in other non-institutional residence as the place of occurrence of the external cause
CPT/HCPCS: 12001; 99283

== ENCOUNTER 2020-06-15 10:26 | Emergency (ER) | payer MEDICARE, BC ==
[2020-06-15 10:42] VITALS: BP 125/64; PULSE 66; RESP 18
[2020-06-15] MEDS ORDERED: LIDOCAINE 1% INJ 10MG/ML (20 ML MDV) SQ ONE (10:46)
--- NOTE | 2020-06-15 10:58 | ED ---
Wound/Laceration HPI - General Chief Complaint: Wound/Laceration Stated Complaint: fall/head lac Time Seen by Provider: 06/15/20 10:46 Source: patient, family Mode of arrival: ambulatory Limitations: no limitations - History of Present Illness Initial Comments: 81-year-old female presenting to the emergency department with a chief complaint of a fall. Patient brought to the ED by her daughter. Daughter states the patient fell about one hour ago and lacerated her head. Patient doesn't recall the exact mechanism of the fall but denies any loss of consciousness. She doesn't take any blood thinners. Daughter states the only requesting laceration repair and no further imaging studies or laboratory work. - Related Data Home Medications Medication Instructions Recorded Confirmed Acetaminophen Tab [Tylenol Tab] 500 mg PO Q6H PRN 02/07/16 06/19/17 Cholecalciferol [Vitamin D3] 1,000 unit PO DAILY 02/07/16 06/19/17 Multivitamins, Thera [Multivitamin] 1 tab PO DAILY 02/07/16 06/19/17 Escitalopram [Lexapro] 10 mg PO DAILY 02/25/16 06/19/17 Lactulose 20 gm PO Q48H 01/23/17 06/19/17 QUEtiapine [SEROquel] 25 mg PO QAM 01/23/17 06/19/17 QUEtiapine [SEROquel] 50 mg PO HS 01/23/17 06/19/17 LORazepam [Ativan] 0.5 mg PO BID PRN 06/19/17 06/19/17 Allergies Allergy/AdvReac Type Severity Reaction Status Date / Time codeine Allergy Rash/Hives Verified 06/15/20 10:42 diphenhydramine HCl Allergy Unknown Verified 06/15/20 10:42 [From Benadryl] hydroxyzine [From Vistaril] Allergy Unknown Verified 06/15/20 10:42 levofloxacin [From Levaquin] Allergy Unknown Verified 06/15/20 10:42 meperidine HCl [From Demerol] Allergy Unknown Verified 06/15/20 10:42 morphine Allergy Unknown Verified 06/15/20 10:42 STEROIDS Allergy Unknown Uncoded 06/15/20 10:42 Review of Systems ROS Statement: Those systems with pertinent positive or pertinent negative responses have been documented in the HPI. ROS Other: All systems not noted in ROS Statement are negative. 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 Absent: atraumatic (2 cm laceration in the occipital region of the head. No active bleeding at this kartik e.), other (Negative Edward sign, raccoon eyes, hemotympanum.) Eye exam: Present: normal appearance, PERRL, EOMI. Absent: scleral icterus, conjunctival injection, nystagmus Pupils: Present: normal accommodation ENT exam: Present: normal exam, normal oropharynx, mucous membranes moist, normal external ear exam Neck exam: Present: normal inspection, full ROM. Absent: tenderness Respiratory exam: Present: normal lung sounds bilaterally. Absent: respiratory distress, wheezes, rales, rhonchi, stridor, chest wall tenderness Cardiovascular Exam: Present: regular rate, normal rhythm, normal heart sounds. Absent: systolic murmur, diastolic murmur Extremities exam: Present: normal inspection, full ROM, normal capillary refill. Absent: tenderness, pedal edema, joint swelling Back exam: Present: normal inspection, full ROM. Absent: tenderness, CVA tenderness (R), CVA tenderness (L) Neurological exam: Present: alert, oriented X3 Psychiatric exam: Present: normal affect, normal mood Skin exam: Present: warm, dry, intact, normal color Course Vital Signs 06/15/20 10:36 Pulse Rate 66 Respiratory 18 Rate Blood Pressure 125/64 O2 Sat by Pulse 89 L Oximetry Procedures - Laceration Laceration #1 Consent Obtained: verbal consent Indication: laceration Site: scalp Size (cm): 2 Description: linear, clean Depth: simple, single layer Sedation/Analgesia: none Type of Sutures: other (Staple) Size of Sutures: other (Staple) Number of Sutures: 3 Technique: other (Staple) Patient Tolerated Procedure: well, no complications Medical Decision Making - Medical Decision Making 89-year-old female presenting to the emergency department with a chief complaint of a fall. Patient has a headache injury with a 2cm laceration occipital region of the head. Daughter is also present in the room. She has POA. Patient is not cooperative to obtain her vitals. They are only requesting laceration repair. Laceration site was repaired with 3 joaquina. Patient tolerated procedure well. Tetanus up-to-date. They will sign out AMA. There were advised to follow-up with a primary care physician. Return parameters discussed with patient and daughter were understanding and agreeable. Case discussed with physician. Disposition Clinical Impression: Laceration, Head injury Disposition: Left Against Medical Advice Condition: Fair Instructions (If sedation given, give patient instructions): Staple Care (ED) Additional Instructions: Return to emergency department in 12-14 days for staple removal. Is patient prescribed a controlled substance at d/c from ED?: No Referrals: Jose Barrera MD [Primary Care Provider] - 1-2 days Time of Disposition: 10:58
== END 2020-06-15 11:10 | disposition left against medical advice (07) ==
LOC: EC 10:26
DX: S01.01XA Laceration without foreign body of scalp, initial encounter (principal); Z88.1 Allergy status to other antibiotic agents; Z88.5 Allergy status to narcotic agent; Z88.8 Allergy status to other drugs, medicaments and biological substances; Z85.6 Personal history of leukemia; Z96.659 Presence of unspecified artificial knee joint; W18.30XA Fall on same level, unspecified, initial encounter; Z53.29 Procedure and treatment not carried out because of patient's decision for other reasons
CPT/HCPCS: 12001; 99282

== ENCOUNTER 2021-05-05 19:21 | Emergency (ER) | payer MEDICARE, BC ==
[2021-05-05 19:31] VITALS: PULSE 87; RESP 20; TEMP 98.7
--- NOTE | 2021-05-05 20:19 | ED ---
General Adult HPI - General Chief complaint: Fall Stated complaint: Fall, Possible Head Injury Time Seen by Provider: 05/05/21 19:45 Source: patient, EMS, RN notes reviewed Mode of arrival: EMS - History of Present Illness Initial comments: 89-year-old female with a past medical history of dementia, hypertension, lymphoma presents to the emergency room for a chief complaint of head injury. Patient lives in a longterm. She fell today and hit her head. Daughter reports that she is required to get her evaluated anytime she hits her head. However daughter states she does not want any testing done. States that they never get a CAT scan when this happens and do not feel it is necessary as patient is almost 89 with dementia and they would not do any intervention if th ere were to be a bleed. They are requesting discharge home.Patient has no other complaints at this time including shortness of breath, chest pain, abdominal pain, nausea or vomiting, headache, or visual changes. - Related Data Home Medications Medication Instructions Recorded Confirmed Acetaminophen Tab [Tylenol Tab] 500 mg PO Q6H PRN 02/07/16 06/19/17 Cholecalciferol [Vitamin D3] 1,000 unit PO DAILY 02/07/16 06/19/17 Multivitamins, Thera [Multivitamin] 1 tab PO DAILY 02/07/16 06/19/17 Escitalopram [Lexapro] 10 mg PO DAILY 02/25/16 06/19/17 Lactulose 20 gm PO Q48H 01/23/17 06/19/17 QUEtiapine [SEROquel] 25 mg PO QAM 01/23/17 06/19/17 QUEtiapine [SEROquel] 50 mg PO HS 01/23/17 06/19/17 LORazepam [Ativan] 0.5 mg PO BID PRN 06/19/17 06/19/17 Allergies Allergy/AdvReac Type Severity Reaction Status Date / Time codeine Allergy Rash/Hives Verified 06/15/20 10:42 diphenhydramine HCl Allergy Unknown Verified 06/15/20 10:42 [From Benadryl] hydroxyzine [From Vistaril] Allergy Unknown Verified 06/15/20 10:42 levofloxacin [From Levaquin] Allergy Unknown Verified 06/15/20 10:42 meperidine HCl [From Demerol] Allergy Unknown Verified 06/15/20 10:42 morphine Allergy Unknown Verified 06/15/20 10:42 STEROIDS Allergy Unknown Uncoded 06/15/20 10:42 Review of Systems ROS Statement: Those systems with pertinent positive or pertinent negative responses have been documented in the HPI. ROS Other: All systems not noted in ROS Statement are negative. Past Medical History Past Medical History: Cancer, Dementia, Hypertension Additional Past Medical History / Comment(s): lymphadenoma, lymphoma History of Any Multi-Drug Resistant Organisms: None Reported Past Surgical History: Back Surgery, Hysterectomy, Joint Replacement Additional Past Surgical History / Comment(s): knee replacement Past Psychological History: No Psychological Hx Reported Smoking Status: Never smoker Past Alcohol Use History: None Reported Past Drug Use History: None Reported General Exam General appearance: alert Head exam: Absent: atraumatic (Small contusion noted to the left frontal scalp) Eye exam: Present: normal appearance, PERRL, EOMI ENT exam: Present: normal exam, mucous membranes moist Neck exam: Present: normal inspection, full ROM. Absent: tenderness Respiratory exam: Present: normal lung sounds bilaterally. Absent: respiratory distress, wheezes Cardiovascular Exam: Present: regular rate, normal rhythm, normal heart sounds GI/Abdominal exam: Present: soft, normal bowel sounds. Absent: distended, tenderness Extremities exam: Present: other (pt able to bear weight on both lower extremities) Course Vital Signs 05/05/21 19:23 Temperature 98.7 F Pulse Rate 87 Respiratory 20 Rate Blood Pressure 126/96 O2 Sat by Pulse 96 Oximetry Medical Decision Making - Medical Decision Making Vitals are stable. Patient well-appearing. A and O times one which is patient's baseline. Daughter is at bedside stating they do not want a CAT scan performed as they would not do any intervention given patient's age and cognitiv e status. We did ambulate patient and she is at baseline as a two-person assist. Able to bear weight on both legs. Requesting discharge home. Patient will return for any worsening symptoms. Disposition Clinical Impression: Fall, Head injury Disposition: HOME SELF-CARE Condition: Good Instructions (If sedation given, give patient instructions): Fall Prevention for Older Adults (ED), Head Injury (ED) Additional Instructions: Please follow up with primary care. Return to the emergency room for any worsening symptoms. Is patient prescribed a controlled substance at d/c from ED?: No Referrals: Jose Barrera MD [Primary Care Provider] - 1-2 days Time of Disposition: 20:18
[2021-05-05 21:02] VITALS: BP 134/84
== END 2021-05-05 21:02 | disposition home or self-care (01) ==
LOC: EC 19:21
DX: S00.03XA Contusion of scalp, initial encounter (principal); I10 Essential (primary) hypertension; F03.90 Unspecified dementia, unspecified severity, without behavioral disturbance, psychotic disturbance, mood disturbance, and anxiety; Z79.899 Other long term (current) drug therapy; Z88.1 Allergy status to other antibiotic agents; Z88.5 Allergy status to narcotic agent; Z88.8 Allergy status to other drugs, medicaments and biological substances; W19.XXXA Unspecified fall, initial encounter
CPT/HCPCS: 99283